=== PATIENT | male | born 1960 | race African-American/Black ===

== ENCOUNTER 2022-08-22 16:06 | Observation (INO) | payer SELFPAY ==
[2022-08-22 16:14] VITALS: BMI 36.6
[2022-08-22] MEDS ORDERED: amLODIPine BESYLATE 5 MG TABLET (FP) PO ONE (17:22)
[2022-08-22] MEDS ORDERED: ALBUTEROL SO4 2.5/IPRATROPIUM 0.5 INH SOL 3 ML VIAL.NEB. NEB ONE (18:03)
[2022-08-22] MEDS ORDERED: amLODIPine BESYLATE 5 MG TABLET (FP) ONE (18:04)
[2022-08-22] MEDS: ALBUTEROL SO4 2.5/IPRATROPIUM 0.5 INH SOL 3 ML VIAL.NEB. NEB SCH ×3 (18:05→18:53)
[2022-08-22 18:06] LABS: BASO % 1.3 % (0-2.0); EOS % 2.3 % (0-4.5); HEMATOCRIT 46.4 % (35.4-49); HEMOGLOBIN 15.8 GM/dL (11.7-16.9); MCH 30.7 pg (25.7-33.7); MEAN CELL VOLUME 90.4 fl (80-96); MEAN PLT VOLUME 8.9 fl (7.5-11.1); MONO % 8.3 % (3.8-10.2); NEUT % 63.1 % (42.8-82.8); PLATELET COUNT 205 10^3/uL (134-434); RBC 5.13 M/mm3 (4.00-5.60); WHITE BLOOD COUNT 7.7 K/mm3 (4.0-10.0)
[2022-08-22 18:15] LABS: INR 0.97 (0.83-1.09); PROTHROMBIN TIME (PATIENT) 11.2 SEC (9.7-13.0)
[2022-08-22 18:18] LABS: ACTIVATED PTT 34.4 SECONDS (25.2-36.5)
[2022-08-22 18:29] LABS: ALBUMIN 3.6 g/dl (3.4-5.0)
[2022-08-22 18:33] LABS: TOT PROT 7.5 g/dl (6.4-8.2)
[2022-08-22 18:34] LABS: CREATININE 1.1 mg/dL (0.55-1.3)
[2022-08-22 18:36] LABS: BILIRUBIN,TOTAL 0.6 mg/dL (0.2-1)
[2022-08-22 18:37] LABS: N-TERMINAL BNP 295.6 pg/ml (5-125)
[2022-08-22] MEDS ORDERED: hydrALAZINE HCL 20 MG/ML VIAL IM PRN (23:39)
[2022-08-22 23:43] LABS: MAGNESIUM 2.1 mg/dL (1.8-2.4)
[2022-08-22 23:47] LABS: PHOSPHOROUS 3.9 mg/dL (2.5-4.9)
[2022-08-23] MEDS ORDERED: hydrALAZINE HCL 20 MG/ML VIAL ONE (00:56)
[2022-08-23] MEDS ORDERED: hydrALAZINE HCL 20 MG/ML VIAL IVPUSH PRN ×2 (01:11→19:03)
[2022-08-23] MEDS: NIFEdipine E.R 60 MG TABLET PO SCH ×2 (05:43→09:11)
[2022-08-23] MEDS: FUROSEMIDE 40 MG/4 ML INJECTABLE VIAL IVPUSH SCH ×2 (05:43→09:10)
[2022-08-23 07:24] LABS: BASO % 0.9 % (0-2.0); EOS % 2.4 % (0-4.5); HEMATOCRIT 46.5 % (35.4-49); HEMOGLOBIN 15.9 GM/dL (11.7-16.9); LYMPH % 30.8 % (8-40); MCH 30.8 pg (25.7-33.7); MCHC 34.1 g/dl (32.0-35.9); MEAN CELL VOLUME 90.4 fl (80-96); MEAN PLT VOLUME 9.2 fl (7.5-11.1); MONO % 8.2 % (3.8-10.2); NEUT % 57.7 % (42.8-82.8); PLATELET COUNT 206 10^3/uL (134-434); RBC 5.15 M/mm3 (4.00-5.60); RDW 13.5 % (11.9-15.9); WHITE BLOOD COUNT 7.1 K/mm3 (4.0-10.0)
[2022-08-23 07:43] LABS: CALCIUM 9.1 mg/dL (8.5-10.1)
[2022-08-23 07:44] LABS: ALBUMIN 3.6 g/dl (3.4-5.0); BLOOD UREA NITROGEN 9.7 mg/dL (7-18); MAGNESIUM 1.9 mg/dL (1.8-2.4)
[2022-08-23 07:47] LABS: CREATININE 0.9 mg/dL (0.55-1.3)
[2022-08-23 07:48] LABS: TOT PROT 7.1 g/dl (6.4-8.2)
[2022-08-23] MEDS ORDERED: POTASSIUM CHLORIDE TABS 20 MEQ TABLET.ER (FP) PO ONE (08:45)
[2022-08-23] MEDS: CARVEDILOL 12.5 MG TABLET (FP) PO SCH ×2 (09:10→21:29)
[2022-08-23] MEDS: ENOXAPARIN NA (PORCINE) 40 MG/0.4 ML DISP.SYRIN SQ SCH ×2 (09:11→21:29)
[2022-08-23] MEDS ORDERED: amLODIPine BESYLATE 5 MG TABLET (FP) PO SCH (10:00)
[2022-08-23] MEDS ORDERED: ENOXAPARIN NA (PORCINE) 40 MG/0.4 ML DISP.SYRIN SQ SCH (10:00)
[2022-08-23 11:18] LABS: URINE APPEARANCE CLEAR; URINE BILIRUBIN NEGATIVE (NEGATIVE); URINE COLOR YELLOW; URINE GLUCOSE (UA) NEGATIVE (NEGATIVE); URINE KETONE NEGATIVE (NEGATIVE); URINE LEUK ESTERASE NEGATIVE (NEGATIVE); URINE NITRITE NEGATIVE (NEGATIVE); URINE PROTEIN NEGATIVE (NEGATIVE); URINE UROBILINOGEN 0.2 mg/dL (0.2-1.0)
[2022-08-23] MEDS ORDERED: PROCHLORPERAZINE INJECTION 10 MG/2 ML VIAL IM PRN (14:15)
[2022-08-23] MEDS ORDERED: POTASSIUM CHLORIDE ORAL LIQUID 20 MEQ/15 ML PO ONE (14:30)
[2022-08-23] MEDS ORDERED: ATORVASTATIN CA 20 MG TABLET (FP) ONE (21:24)
[2022-08-23] MEDS: ATORVASTATIN CA 40 MG TABLET (FP) PO SCH (21:29)
[2022-08-24 07:42] LABS: HEMATOCRIT 48.9 % (35.4-49); HEMOGLOBIN 16.6 GM/dL (11.7-16.9); MCH 31.4 pg (25.7-33.7); MEAN CELL VOLUME 92.4 fl (80-96); MEAN PLT VOLUME 9.7 fl (7.5-11.1); PLATELET COUNT 235 10^3/uL (134-434); RDW 13.2 % (11.9-15.9); WHITE BLOOD COUNT 6.9 K/mm3 (4.0-10.0)
[2022-08-24 08:08] LABS: ALBUMIN 3.6 g/dl (3.4-5.0); BLOOD UREA NITROGEN 18.4 mg/dL (7-18); CALCIUM 9.3 mg/dL (8.5-10.1)
[2022-08-24 08:09] LABS: CREATININE 1.2 mg/dL (0.55-1.3)
[2022-08-24 08:11] LABS: TOT PROT 7.2 g/dl (6.4-8.2)
[2022-08-24] MEDS: CARVEDILOL 12.5 MG TABLET (FP) PO SCH ×2 (09:56→22:05)
[2022-08-24] MEDS: FUROSEMIDE 40 MG TABLET (FP) PO SCH (09:56)
[2022-08-24] MEDS: NIFEdipine E.R 60 MG TABLET PO SCH (09:56)
[2022-08-24] MEDS: ENOXAPARIN NA (PORCINE) 40 MG/0.4 ML DISP.SYRIN SQ SCH ×2 (09:57→22:05)
[2022-08-24] MEDS: ATORVASTATIN CA 40 MG TABLET (FP) PO SCH (22:05)
[2022-08-25 08:32] VITALS: RESP 18
[2022-08-25] MEDS: CARVEDILOL 12.5 MG TABLET (FP) PO SCH ×2 (08:55→12:13)
[2022-08-25] MEDS: FUROSEMIDE 40 MG TABLET (FP) PO SCH ×2 (08:55→12:13)
[2022-08-25] MEDS: NIFEdipine E.R 60 MG TABLET PO SCH ×2 (08:56→12:13)
[2022-08-25] MEDS: ENOXAPARIN NA (PORCINE) 40 MG/0.4 ML DISP.SYRIN SQ SCH (09:53)
[2022-08-25 16:16] VITALS: BP 140/89; PULSE 90; TEMP 98.1
== END 2022-08-25 16:40 | disposition home or self-care (01) ==
LOC: JER 16:06 → JERBED 20:09 → J4W 08-23 01:44
PROVIDERS: ADMIT Internal Medicine; ATTEND Internal Medicine
PROC: 3E0F7GC Introduction of Other Therapeutic Substance into Respiratory Tract, Via Natural or Artificial Opening (ICD-10-PCS; principal; 2022-08-22)
PROC: 3E023GC Introduction of Other Therapeutic Substance into Muscle, Percutaneous Approach (ICD-10-PCS; 2022-08-22)
PROC: 3E0337Z Introduction of Electrolytic and Water Balance Substance into Peripheral Vein, Percutaneous Approach (ICD-10-PCS; 2022-08-22)
PROC: 3E023GC Introduction of Other Therapeutic Substance into Muscle, Percutaneous Approach (ICD-10-PCS; 2022-08-22)
DX: I16.0 Hypertensive urgency (principal); R79.89 Other specified abnormal findings of blood chemistry; R06.02 Shortness of breath; Z91.14 Patient's other noncompliance with medication regimen
CPT/HCPCS: 0241U-QW; 36415; 71046-TC-FY; 80053; 80061; 81003; 82962; 83036; 83735; 83880; 84100; 84443; 84484; 85025; 85027; 85379; 85610; 85730; 87086; 93005; 93010; 93306-TC; 97116-GP; 99285-25; G0378